=== PATIENT | female | born 1980 | race African-American/Black ===

== ENCOUNTER 2017-01-22 15:47 | Emergency (ER) | payer SELFPAY ==
[2017-01-22 16:02] VITALS: TEMP 98.1; BMI 45.1
--- NOTE | 2017-01-22 16:16 | PDOC ---
History of Present Illness <Deana Whiting - Last Filed: 01/22/17 20:05> - General History Source: Patient - History of Present Illness Initial Comments: 01/22/17 16:59 CC: Palpitations @ HD Patient is a 36 y.o. female with a PMH of ESRD (on HD), HTN and Schizophrenia who presents from HD for an isolated episode of palpitations. Patient states she was sitting during her HD session when she felt her heart beating very fast. Patient states the episode lasted approximately < 2-3 minutes. Patient denies any associated chest pain, vomiting, diaphoresis or shortness of breath. <CecilySravani - Last Filed: 01/22/17 20:25> - General Chief Complaint: Chest Pain Stated Complaint: CHEST PAIN Time Seen by Provider: 01/22/17 16:00 Past History <Deana Whiting - Last Filed: 01/22/17 20:05> - Past Medical History Diabetes: Yes HTN: Yes - Psycho/Social/Smoking Cessation Hx Anxiety: No Suicidal Ideation: No Smoking History: Never smoked Have you smoked in the past 12 months: No Information on smoking cessation initiated: No Hx Alcohol Use: No Drug/Substance Use Hx: No Substance Use Type: None <CecilySravani - Last Filed: 01/22/17 20:25> - Past Medical History Allergies/Adverse Reactions: Allergies Allergy/AdvReac Type Severity Reaction Status Date / Time No Known Allergies Allergy Verified 01/22/17 15:58 Home Medications: Ambulatory Orders Amlodipine Besylate [Norvasc -] 10 mg PO DAILY 01/22/17 Atenolol [Tenormin] 25 mg PO DAILY 01/22/17 Benztropine Mesylate [Cogentin -] 1 mg PO DAILY 01/22/17 Clozapine [Fazaclo] 300 mg PO DAILY 01/22/17 Docusate Sodium [Colace -] 100 mg PO BID 01/22/17 Famotidine [Pepcid -] 20 mg PO DAILY 01/22/17 Ferrous Sulfate [Feosol] 325 mg PO DAILY 01/22/17 Nifedipine ER [Procardia Xl -] 30 mg PO DAILY 01/22/17 Sennosides [Senna] 8.6 mg PO DAILY 01/22/17 Simvastatin [Zocor -] 20 mg PO HS 01/22/17 Solifenacin Succinate [Vesicare -] 5 mg PO DAILY 01/22/17 Review of Systems - Review of Systems Constitutional: No: Chills, Diaphoresis HEENTM: No: Blurred Vision, Throat Pain Respiratory: No: Cough, Orthopnea Cardiac (ROS): Yes: Palpitations. No: Chest Pain ABD/GI: No: Constipated, Diarrhea : No: Burning, Dysuria Neurological: No: Headache, Numbness Psychiatric: No: Anxiety, Depression All Other Systems: Reviewed and Negative <Sravani Tony - Last Filed: 01/22/17 20:25> *Physical Exam - Vital Signs Last Vital Signs Temp Pulse Resp BP Pulse Ox 98.1 F 823 H 18 106/56 98 01/22/17 15:58 01/22/17 19:29 01/22/17 19:29 01/22/17 19:29 01/22/17 19:29 <Deana Whiting - Last Filed: 01/22/17 20:05> - Vital Signs Last Vital Signs Temp Pulse Resp BP Pulse Ox 98.1 F 84 20 122/69 100 01/22/17 15:58 01/22/17 15:58 01/22/17 15:58 01/22/17 15:58 01/22/17 15:58 - Physical Exam General Appearance: Yes: Appropriately Dressed, Obese HEENT: positive: BOOM Neck: positive: Trachea midline, Supple Respiratory/Chest: positive: Lungs Clear, Normal Breath Sounds Cardiovascular: positive: Regular Rhythm, Regular Rate, S1, S2 Gastrointestinal/Abdominal: positive: Normal Bowel Sounds, Soft Extremity: positive: Normal Capillary Refill, Normal Inspection Neurologic: positive: Fully Oriented, Alert <Sravani Tony - Last Filed: 01/22/17 20:25> ED Treatment Course - LABORATORY CBC & Chemistry Diagram: 01/22/17 16:30 01/22/17 16:30 - ADDITIONAL ORDERS Additional order review: Laboratory Results 01/22/17 01/22/17 16:30 16:30 Sodium 133 L Potassium 4.8 Chloride 95 L Carbon Dioxide 25 Anion Gap 13 BUN 55 H Creatinine 11.8 H* Random Glucose 114 H Calcium 8.5 Creatine Kinase 510 H Creatine Kinase Index 0.1 CK-MB (CK-2) < 1.000 Troponin I 0.04 01/22/17 16:30 RBC 3.08 L MCV 86.9 MCHC 33.3 RDW 15.9 H MPV 8.5 <Deana Whiting - Last Filed: 01/22/17 20:05> - LABORATORY CBC & Chemistry Diagram: 01/22/17 16:30 01/22/17 16:30 - RADIOLOGY Radiology Studies Ordered: Category Date Time Status CHEST PA & LAT [RAD] Stat Radiology 01/22/17 16:12 Ordered <Sravani Tony - Last Filed: 01/22/17 20:25> Medical Decision Making - Medical Decision Making 01/22/17 17:01 Patient DDx includes r/o ACS vs. Psychiatric Induced Anxiety PLAN 1. EKG 2. CBC, BMP 3. Troponin x1 Spoke with [facility], received patient's med list, confirmed patient has no CHF, h/o AK. 01/22/17 18:44 Patient's BMP shows no hypokalemia (K+ 4.8), elevated Cr however patient did not finish dialysis today. CXR negative for effusions or pulmonary infiltrate. Spoke to Dr. Chavez, patient scheduled for dialysis at [facility] tomorrow @ 8:15. Patient discharged to [facility]. <Sravani Tony - Last Filed: 01/22/17 20:25> *DC/Admit/Observation/Transfer <Deana Whiting - Last Filed: 01/22/17 20:05> - Discharge Dispostion Admit: No <CecilySravani - Last Filed: 01/22/17 20:25> Diagnosis at time of Disposition: Heart palpitations - Discharge Dispostion Disposition: HOME Condition at time of disposition: Stable - Patient Instructions Printed Discharge Instructions: DI for Palpitations Additional Instructions: You were evaluated in the ED today for a short isolated episode of palpitations. Please return to the ED should you feel any chest pain, shortness of breath or confusion. As you did not complete your dialysis appointment today, a dialysis session has been scheduled for you at [facility], [address] [place] [address] tomorrow at 8:15 a.m.
--- NOTE | 2017-01-22 16:53 | PDOC ---
Attending Attestation - Resident Resident Name: Sravani Tony - ED Attending Attestation I have performed the following: I have examined & evaluated the patient, The case was reviewed & discussed with the resident, I agree w/resident's findings & plan, Exceptions are as noted - HPI HPI: 01/22/17 16:52 36 yo obese paresh ESRD ,schizophrenia had 5 minutes of palpitations during her dialysis and they didn't finish her treatment - Physicial Exam PE: 01/22/17 19:59 obese 36 yo female who currently has not palpitations or chest pain lungs cta b/l cvr [id number] abd protuberant,no rebound and no guarding Ext mild edema neuro alert,conversant,moving all extremities - Medical Decision Making 01/22/17 16:53 w/u ACS -ekg,cards,cbc,comp,inr,cxr 01/22/17 20:02 neg trop/pt had recent echo /discharge home,will follow up w her PCP
[2017-01-22 17:43] LABS: MCHC 33.3 g/dl (32.0-36.0); MEAN CELL VOLUME 86.9 fl (80-96); MEAN PLT VOLUME 8.5 fl (7.5-11.1); PLATELET COUNT 196 K/MM3 (134-434); RDW 15.9 % (11.6-15.6); WHITE BLOOD COUNT 9.5 K/mm3 (4.0-10.0)
[2017-01-22 18:28] LABS: CPK 510 IU/L (26-192)
[2017-01-22 18:29] LABS: ANION GAP 13 (8-16); CALCIUM 8.5 mg/dL (8.5-10.1); CO2 25 mmol/L (21-32); GLUCOSE,RANDOM 114 mg/dL (74-106)
[2017-01-22 18:33] LABS: TROPONIN I 0.04 ng/ml (0.00-0.05)
[2017-01-22 18:37] LABS: CREATININE 11.8 mg/dL (0.55-1.02)
[2017-01-22 19:30] VITALS: BP 106/56; PULSE 823
--- NOTE | 2017-01-24 12:22 | EKG ---
Test Reason : Blood Pressure : / mmHG Vent. Rate : 080 BPM Atrial Rate : 080 BPM P-R Int : 188 ms QRS Dur : 082 ms QT Int : 392 ms P-R-T Axes : 039 023 014 degrees QTc Int : 452 ms POOR DATA QUALITY, INTERPRETATION MAY BE ADVERSELY AFFECTED NORMAL SINUS RHYTHM NONSPECIFIC T WAVE ABNORMALITY ABNORMAL ECG NO PREVIOUS ECGS AVAILABLE Confirmed by SAMREEN THOMAS MD ([id number]) on 01/24/2017 12:22:52 PM Referred By: Confirmed By:SAMREEN THOMAS MD
== END 2017-01-22 22:10 | disposition home or self-care (01) ==
LOC: JER 15:47
DX: R00.2 Palpitations (principal); I12.0 Hypertensive chronic kidney disease with stage 5 chronic kidney disease or end stage renal disease; E11.22 Type 2 diabetes mellitus with diabetic chronic kidney disease; N18.6 End stage renal disease; N17.8 Other acute kidney failure; Z99.2 Dependence on renal dialysis
CPT/HCPCS: 36415; 71020-TC; 80048; 82553; 84484; 85027; 93005; 93010; 99284-25

== ENCOUNTER 2017-04-13 15:33 | Observation (INO) | payer OTHER ==
--- NOTE | 2017-04-13 15:45 | PDOC ---
History of Present Illness - History of Present Illness Initial Comments: 04/13/17 16:24 The patient is a 36 year old female with a significant PMH of end stage renal disease (on hemodialysis), hypertension, and schizophrenia who was sent to the emergency department because their was a blood clot during her hemodialysis session. The patient reports no other symptoms or complaints today. The patient denies chest pain, shortness of breath, headache and dizziness. Denies fever, chills, nausea, vomit, diarrhea and constipation. Denies dysuria, frequency, urgency and hematuria. Allergies: NKA Past surgical history: Dialysis shunt Social history: No reported drug, alcohol, or cigarette use. <Lexis Guzman - Last Filed: 04/13/17 19:26> <Abdifatah Luevano - Last Filed: 04/14/17 15:19> - General Chief Complaint: Dialysis Shunt Problem Stated Complaint: DIALYSIS PORT Time Seen by Provider: 04/13/17 15:45 Past History <Lexis Guzman - Last Filed: 04/13/17 19:26> - Past Medical History Diabetes: Yes HTN: Yes - Suicide/Smoking/Psychosocial Hx Smoking History: Never smoked Have you smoked in the past 12 months: No Hx Alcohol Use: No Drug/Substance Use Hx: No Substance Use Type: None <Abdifatah Luevano - Last Filed: 04/14/17 15:19> - Past Medical History Allergies/Adverse Reactions: Allergies Allergy/AdvReac Type Severity Reaction Status Date / Time No Known Allergies Allergy Verified 01/22/17 15:58 Home Medications: Ambulatory Orders Amlodipine Besylate [Norvasc -] 10 mg PO DAILY 01/22/17 Atenolol [Tenormin] 25 mg PO ASDIR 01/22/17 Benztropine Mesylate [Cogentin -] 1 mg PO DAILY 01/22/17 Clozapine [Fazaclo] 300 mg PO DAILY 01/22/17 Docusate Sodium [Colace -] 100 mg PO BID 01/22/17 Famotidine [Pepcid -] 20 mg PO DAILY 01/22/17 Ferrous Sulfate [Feosol] 325 mg PO DAILY 01/22/17 Nifedipine ER [Procardia Xl -] 30 mg PO DAILY 01/22/17 Sennosides [Senna] 8.6 mg PO DAILY 09/05/17 Simvastatin [Zocor -] 20 mg PO HS 01/22/17 Solifenacin Succinate [Vesicare -] 5 mg PO DAILY 01/22/17 Acetaminophen [Pain Relief] 650 mg PO QID PRN 04/13/17 Folic Acid 1 mg PO DAILY 04/13/17 Pravastatin Sodium 20 mg PO DAILY 04/13/17 Sevelamer HCl [Renagel] 800 mg PO TID 04/13/17 Review of Systems - Review of Systems Able to Perform ROS?: Yes Comments:: 04/13/17 16:25 A complete review of 10 out of 10 review of systems is taken and is negative apart from what is previously mentioned below and in the HPI. <Lexis Guzman - Last Filed: 04/13/17 19:26> *Physical Exam - Physical Exam Comments: 04/13/17 16:25 Vitals: Triage Vital signs reviewed General Appearance: no acute distress, well nourished well developed, Head: Atraumatic, normocephalic Eyes: Pupils equal reactive round, extraocular movement intact Neck: Supple;No Nuchal rigidity Chest Wall: Nontender Cardiac: Regular rate and rhythm, no murmurs, no rubs, no gallops, Lungs: Clear to auscultation bilateral, good air movement bilaterally, Abdomen: Soft, nondistended, normal bowel sounds, nontender to palpation Rectal: Exam deferred Extremities: Full range of motion to all extremities, no cyanosis, clubbing, or edema Skin: Warm and dry, no rashes or lesions, no petechiae Neuro: AOX3; Cranial Nerves 2-12 grossly intact. Psych: normal mood <Lexis Guzman - Last Filed: 04/13/17 19:26> Heart Score/ECG Review #1 04/13/17 19:26 EKG performed at [16:42] demonstrates rate of [80], rhythm of [normal], axis equal to [normal]. no T wave inversions, no ST elevations <Lexis Guzman - Last Filed: 04/13/17 19:26> ED Treatment Course - LABORATORY CBC & Chemistry Diagram: 04/13/17 17:00 04/13/17 17:00 <Lexis Guzman - Last Filed: 04/13/17 19:26> - LABORATORY CBC & Chemistry Diagram: 04/14/17 07:00 04/14/17 07:00 <Abdifatah Luevano - Last Filed: 04/14/17 15:19> Medical Decision Making - Medical Decision Making 04/13/17 20:49 Dialysis with clogged dialysis catheter Hemodynamically stable potassium 4.6 does not need emergent dialysis. Spoke with Dr. Boothe vascular surgery recommended patient be transferred to [facility] Patient not accepted for transfer by vascular team at [facility] We'll admit patient to medicine service here vascular consultation in a.m. patient does not need emergent dialysis medicine team to coordinate patient's next dialysis session. <Abdifatah Luevano - Last Filed: 04/14/17 15:19> *DC/Admit/Observation/Transfer - Attestations Scribe Attestion: 04/13/17 16:26 Documentation prepared by Leixs Guzman, acting as medical office clerk for Abdifatah Luevano MD. <Lexis Guzman - Last Filed: 04/13/17 19:26> - Discharge Dispostion Admit: No <Abdifatah Luevano - Last Filed: 04/14/17 15:19> Diagnosis at time of Disposition: Dialysis catheter clot or failure - Discharge Dispostion Disposition: TRANSFER ACUTE CARE/OTHER HOSP
[2017-04-13 16:50] VITALS: BMI 45.1
[2017-04-13 17:16] LABS: BASO % 1.1 % (0-2.0); EOS % 5.6 % (0-4.5); MCH 29.9 pg (25.7-33.7); MCHC 32.2 g/dl (32.0-36.0); MEAN PLT VOLUME 7.8 fl (7.5-11.1); NEUT % 63.9 % (42.8-82.8); PLATELET COUNT 218 K/MM3 (134-434); RDW 16.4 % (11.6-15.6); WHITE BLOOD COUNT 6.4 K/mm3 (4.0-10.0)
[2017-04-13 17:25] LABS: INR 1.01 (0.82-1.09); PROTHROMBIN TIME (PATIENT) 11.4 SEC (9.98-11.88)
[2017-04-13 17:27] LABS: ACTIVATED PTT 31.7 SECONDS (26.9-34.4)
[2017-04-13 17:42] LABS: ALBUMIN 3.6 g/dl (3.4-5.0); ANION GAP 11 (8-16); CALCIUM 8.2 mg/dL (8.5-10.1); CO2 24 mmol/L (21-32); GLUCOSE,RANDOM 100 mg/dL (74-106); SGOT/AST 15 U/L (15-37); SGPT/ALT 25 U/L (12-78)
[2017-04-13 17:48] LABS: ALK PHOS 105 U/L (45-117); BILIRUBIN,TOTAL 0.4 mg/dL (0.2-1.0); TOT PROT 8.1 g/dl (6.4-8.2)
[2017-04-13 17:49] LABS: CREATININE 8.6 mg/dL (0.55-1.02)
--- NOTE | 2017-04-14 00:39 | HP ---
CHIEF COMPLAINT: Non Functioning Permacath PCP: HISTORY OF PRESENT ILLNESS: This is a 36 y/o with a PMHx of: ESRD, HTN, Schizophrenia. Who presents to the ED from the Dialysis Center for a clogged Dialysis Catheter. Patient's last HD was 5 days ago. Patient denies fever, chills, cough, SOB, CP, AP, N/V/D, constipation. ER course was notable for: (1) BUN 47, Cr 8.6 (2) EKG- NSR (3) Chest Xray- no abnormal pathology Recent Travel: None PAST MEDICAL HISTORY: ESRD HTN Schizophrenia PAST SURGICAL HISTORY: Permacath Social History: Smoking: Never Alcohol: None Drugs: None Lives with family Family History: Mother: DVT Allergies No Known Allergies Allergy (Verified 01/22/17 15:58) HOME MEDICATIONS: Home Medications Medication Instructions Recorded Amlodipine Besylate [Norvasc -] 10 mg PO DAILY 01/22/17 Atenolol [Tenormin] 25 mg PO ASDIR 01/22/17 Benztropine Mesylate [Cogentin -] 1 mg PO DAILY 01/22/17 Clozapine [Fazaclo] 300 mg PO DAILY 01/22/17 Docusate Sodium [Colace -] 100 mg PO BID 01/22/17 Famotidine [Pepcid -] 20 mg PO DAILY 01/22/17 Ferrous Sulfate [Feosol] 325 mg PO DAILY 01/22/17 Nifedipine ER [Procardia Xl -] 30 mg PO DAILY 01/22/17 Sennosides [Senna] 8.6 mg PO DAILY 01/22/17 Simvastatin [Zocor -] 20 mg PO HS 01/22/17 Solifenacin Succinate [Vesicare -] 5 mg PO DAILY 01/22/17 Acetaminophen [Pain Relief] 650 mg PO QID PRN 04/13/17 Folic Acid 1 mg PO DAILY 04/13/17 Pravastatin Sodium 20 mg PO DAILY 04/13/17 Sevelamer HCl [Renagel] 800 mg PO TID 04/13/17 REVIEW OF SYSTEMS CONSTITUTIONAL: Absent: fever, chills, diaphoresis, generalized weakness, malaise, loss of appetite, weight change HEENT: Absent: rhinorrhea, nasal congestion, throat pain, throat swelling, difficulty swallowing, mouth swelling, ear pain, eye pain, visual changes CARDIOVASCULAR: Absent: chest pain, syncope, palpitations, irregular heart rate, lightheadedness , peripheral edema RESPIRATORY: Absent: cough, shortness of breath, dyspnea with exertion, orthopnea, wheezing, stridor, hemoptysis GASTROINTESTINAL: Absent: abdominal pain, abdominal distension, nausea, vomiting, diarrhea, constipation, melena, hematochezia GENITOURINARY: Absent: dysuria, frequency, urgency, hesitancy, hematuria, flank pain, genital pain MUSCULOSKELETAL: Absent: myalgia, arthralgia, joint swelling, back pain, neck pain SKIN: Absent: rash, itching, pallor HEMATOLOGIC/IMMUNOLOGIC: Absent: easy bleeding, easy bruising, lymphadenopathy, frequent infections ENDOCRINE: Absent: unexplained weight gain, unexplained weight loss, heat intolerance, cold intolerance NEUROLOGIC: Absent: headache, focal weakness or paresthesias, dizziness, unsteady gait, seizure, mental status changes, bladder or bowel incontinence PSYCHIATRIC: Absent: anxiety, depression, suicidal or homicidal ideation, hallucinations. PHYSICAL EXAMINATION Vital Signs - 24 hr 04/13/17 04/13/17 04/13/17 15:33 21:28 22:00 Temperature 98.8 F 98.4 F Pulse Rate 80 82 Pulse Rate [ 87 Apical] Respiratory 16 18 19 Rate Blood Pressure 126/94 125/66 Blood Pressure 127/70 [Right Arm] O2 Sat by Pulse 100 100 Oximetry (%) 04/13/17 23:00 Temperature 98.4 F Pulse Rate 75 Pulse Rate [ Apical] Respiratory 18 Rate Blood Pressure 125/60 Blood Pressure [Right Arm] O2 Sat by Pulse Oximetry (%) GENERAL: Obese, awake, alert, and oriented to baseline, in no acute distress. HEAD: Normal with no signs of trauma. EYES: Pupils equal, round and reactive to light, extraocular movements intact, sclera anicteric, conjunctiva clear. No lid lag. EARS, NOSE, THROAT: Ears normal, nares patent, oropharynx clear without exudates. Moist mucous membranes. NECK: Normal range of motion, supple without lymphadenopathy, JVD, or masses. LUNGS: Breath sounds equal, clear to auscultation bilaterally. No wheezes, and no crackles. No accessory muscle use. HEART: Regular rate and rhythm, normal S1 and S2 without murmur, rub or gallop. CHEST: Permacath to RCW ABDOMEN: Soft, nontender, not distended, normoactive bowel sounds, no guarding, no rebound, no masses. No hepatomegaly or splenomegaly. MUSCULOSKELETAL: Normal range of motion at all joints. No bony deformities or tenderness. No CVA tenderness. UPPER EXTREMITIES: 2+ pulses, warm, well-perfused. No cyanosis. No clubbing. No peripheral edema. LOWER EXTREMITIES: 2+ pulses, warm, well-perfused. No calf tenderness. No peripheral edema. NEUROLOGICAL: Cranial nerves II-XII intact. Normal speech. Gait not observed. PSYCHIATRIC: Cooperative. Good eye contact. Appropriate mood and affect. SKIN: Warm, dry, normal turgor, no rashes or lesions noted, normal capillary refill. Laboratory Results - last 24 hr 04/13/17 04/13/17 04/13/17 17:00 17:00 17:00 WBC RBC Hgb Hct MCV MCH MCHC RDW Plt Count MPV Neutrophils % Lymphocytes % Monocytes % Eosinophils % Basophils % PT with INR 11.40 INR 1.01 PTT (Actin FS) 31.7 Sodium 137 Potassium 4.5 Chloride 102 Carbon Dioxide 24 Anion Gap 11 BUN 47 H Creatinine 8.6 H* D Creat Clearance w eGFR 5.18 Random Glucose 100 Calcium 8.2 L Total Bilirubin 0.4 AST 15 ALT 25 Alkaline Phosphatase 105 Total Protein 8.1 Albumin 3.6 Blood Type O POSITIVE Antibody Screen Negative 04/13/17 17:00 WBC 6.4 D RBC 3.65 Hgb 10.9 D Hct 34.0 D MCV 93.0 MCH 29.9 MCHC 32.2 RDW 16.4 H Plt Count 218 MPV 7.8 Neutrophils % 63.9 Lymphocytes % 21.3 Monocytes % 8.1 Eosinophils % 5.6 H Basophils % 1.1 PT with INR INR PTT (Actin FS) Sodium Potassium Chloride Carbon Dioxide Anion Gap BUN Creatinine Creat Clearance w eGFR Random Glucose Calcium Total Bilirubin AST ALT Alkaline Phosphatase Total Protein Albumin Blood Type Antibody Screen ASSESSMENT/PLAN: This is a 36 y/o woman with a PMHx of ESRD (HD- ), HTN, Schizophrenia. Placed in Observation for Clogged Permacath for further evaluation of their emergent condition. Plan: FEN - Fluids Restriction 1L - Replete lytes prn - NPO DVT Prophylaxis - OOB - SCDs - Consider AC if LOS > 48 hrs Code Status: Full Code Dispo: Observation Problem List - Problem (1) Dialysis catheter clot or failure Assessment/Plan: -Likely secondary to clot - Appreciate Vascular Consult - Appreciate Nephrology Consult - Monitor vitals - Keep NPO Code(s): SUN0665 - (2) ESRD (end stage renal disease) Assessment/Plan: - HD (, , Sat) - Appreciate Nephrology Consult Code(s): N18.6 - END STAGE RENAL DISEASE (3) HTN (hypertension) Assessment/Plan: - Controlled - Monitor BP - Continue home med when verified with patient's pharmacy (Patient is a poor historian) Code(s): I10 - ESSENTIAL (PRIMARY) HYPERTENSION (4) Schizophrenia Assessment/Plan: - Will need to verify med with home pharmacy Code(s): F20.9 - SCHIZOPHRENIA, UNSPECIFIED (5) DVT prophylaxis Assessment/Plan: - OOB - SCDs - Consider AC if LOS > 48 hrs Code(s): ELF6237 - Visit type - Emergency Visit Emergency Visit: Yes ED Registration Date: 04/13/17 Care time: The patient presented to the Emergency Department on the above date and was hospitalized for further evaluation of their emergent condition. - New Patient This patient is new to me today: Yes Date on this admission: 04/13/17 - Critical Care Critical Care patient: No
[2017-04-14] MEDS ORDERED: FAMOTIDINE 20 MG/50 ML IVPB 20 MG/50 ML MG IVPB ONE (06:04)
[2017-04-14] MEDS ORDERED: DEXTROSE 5%-0.45% SALINE 1,000 ML IV SCH (06:15)
[2017-04-14 08:06] LABS: BASO % 1.1 % (0-2.0); EOS % 5.7 % (0-4.5); MCH 30.2 pg (25.7-33.7); MCHC 32.7 g/dl (32.0-36.0); MEAN CELL VOLUME 92.5 fl (80-96); MEAN PLT VOLUME 8.2 fl (7.5-11.1); NEUT % 61.7 % (42.8-82.8); PLATELET COUNT 205 K/MM3 (134-434); RDW 16.6 % (11.6-15.6); WHITE BLOOD COUNT 6.1 K/mm3 (4.0-10.0)
[2017-04-14 09:15] LABS: ANION GAP 12 (8-16); CALCIUM 7.9 mg/dL (8.5-10.1); CO2 20 mmol/L (21-32); GLUCOSE,RANDOM 107 mg/dL (74-106); MAGNESIUM 2.6 mg/dL (1.8-2.4); PHOSPHOROUS 5.4 mg/dL (2.5-4.9)
[2017-04-14 09:20] LABS: CREATININE 8.7 mg/dL (0.55-1.02)
--- NOTE | 2017-04-14 13:56 | CONSULT ---
Consult Consult Specialty:: Nephrology Reason for Consultation:: ESRD - History of Present Illness Chief Complaint: sent in for catheter malfunction History of Present Illness: Pt is a 36 year old female with pmhx of ESRD, HTN and schizophremia who was sent in from HD for catheter malfunction. Pt is a poor historian and does not know where she dialyzes or who her zigzag stitcher is. I called the [facility] [phone] and spoke to Angy which is her nurse for history. I also called the patients sister Lakshmi [phone] and discussed her care. Pt denies shortness of breath. She is ambulating without difficulty. She is asking for food as she is NPO. She denies lower ext edema. She has a left arm fistula however it is not functioning. She says she went to [facility] to get her catheter placed. Pt is a very poor historian and defaults most questions to the AL or her sister. - History Source History Provided By: Patient, Family Member, Caregiver - Past Medical History Cardio/Vascular: Yes: HTN, Hyperlipdemia Gastrointestinal: Yes: GERD Renal/: Yes: Renal Failure, Hemodialysis ...: No Psych: Yes: Schizophrenia - Past Surgical History Past Surgical History: Yes: AV Fistula/Graft - Alcohol/Substance Use Hx Alcohol Use: No - Smoking History Smoking history: Never smoked Have you smoked in the past 12 months: No Home Medications - Allergies Allergies/Adverse Reactions: Allergies Allergy/AdvReac Type Severity Reaction Status Date / Time No Known Allergies Allergy Verified 01/22/17 15:58 - Home Medications Home Medications: Ambulatory Orders Amlodipine Besylate [Norvasc -] 10 mg PO DAILY 01/22/17 Atenolol [Tenormin] 25 mg PO ASDIR 01/22/17 Benztropine Mesylate [Cogentin -] 1 mg PO DAILY 01/22/17 Clozapine [Fazaclo] 300 mg PO DAILY 01/22/17 Docusate Sodium [Colace -] 100 mg PO BID 01/22/17 Famotidine [Pepcid -] 20 mg PO DAILY 01/22/17 Ferrous Sulfate [Feosol] 325 mg PO DAILY 01/22/17 Nifedipine ER [Procardia Xl -] 30 mg PO DAILY 01/22/17 Sennosides [Senna] 8.6 mg PO DAILY 01/22/17 Simvastatin [Zocor -] 20 mg PO HS 01/22/17 Solifenacin Succinate [Vesicare -] 5 mg PO DAILY 01/22/17 Acetaminophen [Pain Relief] 650 mg PO QID PRN 04/13/17 Folic Acid 1 mg PO DAILY 04/13/17 Pravastatin Sodium 20 mg PO DAILY 04/13/17 Sevelamer HCl [Renagel] 800 mg PO TID 04/13/17 Family Disease History - Family Disease History Family History: Denies Review of Systems - Review of Systems Constitutional: reports: No Symptoms Eyes: reports: No Symptoms HENT: reports: No Symptoms Neck: reports: No Symptoms Cardiovascular: reports: No Symptoms Respiratory: reports: No Symptoms Gastrointestinal: reports: No Symptoms Genitourinary: reports: No Symptoms Musculoskeletal: reports: No Symptoms Integumentary: reports: No Symptoms Neurological: reports: No Symptoms Endocrine: reports: No Symptoms Hematology/Lymphatic: reports: No Symptoms Psychiatric: reports: No Symptoms Physical Exam Vital Signs: Vital Signs Temperature 98.7 F 04/14/17 06:00 Pulse Rate 74 04/14/17 10:00 Respiratory Rate 18 04/14/17 10:00 Blood Pressure 109/74 04/14/17 10:00 O2 Sat by Pulse Oximetry (%) 98 04/14/17 06:11 Constitutional: Yes: Calm Eyes: Yes: Conjunctiva Clear HENT: Yes: Atraumatic Neck: Yes: Supple Cardiovascular: Yes: S1, S2 Respiratory: Yes: Regular, CTA Bilaterally Gastrointestinal: Yes: Soft, Abdomen, Obese Renal/: Yes: WNL Musculoskeletal: Yes: WNL Extremities: Yes: Other (left arm fistula) Edema: No Neurological: Yes: Oriented Psychiatric: Yes: Oriented Labs: CBC, BMP 04/14/17 07:00 04/14/17 07:00 Laboratory Tests 04/13/17 04/13/17 04/13/17 17:00 17:00 17:00 WBC Hgb 10.9 D Plt Count PT with INR 11.40 INR 1.01 PTT (Actin FS) 31.7 Sodium 137 Potassium 4.5 Chloride 102 Carbon Dioxide 24 Anion Gap 11 BUN 47 H Creatinine 8.6 H* D Random Glucose 100 Calcium 8.2 L 04/14/17 04/14/17 07:00 07:00 WBC 6.1 Hgb 10.0 L Plt Count 205 PT with INR INR PTT (Actin FS) Sodium 137 Potassium 4.7 Chloride 105 Carbon Dioxide 20 L Anion Gap 12 BUN 52 H Creatinine 8.7 H* Random Glucose 107 H Calcium 7.9 L Imaging - Results Chest X-ray: Report Reviewed Problem List - Problems (1) Dialysis catheter clot or failure Code(s): FWD0976 - (2) ESRD (end stage renal disease) Code(s): N18.6 - END STAGE RENAL DISEASE (3) HTN (hypertension) Code(s): I10 - ESSENTIAL (PRIMARY) HYPERTENSION (4) Schizophrenia Code(s): F20.9 - SCHIZOPHRENIA, UNSPECIFIED Assessment/Plan Current Medications Generic Name Dose Route Start Last Admin Trade Name Freq PRN Reason Stop Dose Admin Dextrose/Sodium Chloride 1,000 mls @ 42 mls/hr 04/14/17 06:15 04/14/17 06:53 D5-1/2ns - IV 42 mls/hr ASDIR PRASANNA Administration Impression 1. HD catheter malfunction 2. ESRD 3. HTN 4. hyperlipidemia 5. GERD 6. schizophrenia 7. anemia Plan - stop fluids - start renal diet - called vascular surgery for permacath exchange tomorrow - resume NH meds - called pts NH at [place] [phone] - called pts sister Lakshmi at [phone] - called and discussed with medical team - everyone is aware of plan - will arrange for HD tomorrow after permacath - pt goes for HD at [facility] which is closed today - pts zigzag stitcher is at [facility] however family, pt and NH dont know the name - will follow Dr Pack
--- NOTE | 2017-04-14 14:33 | PN ---
Progress Note (short form) - Note Progress Note: Subjective: The patient was seen and examined at the bedside, she states she is comfortable. She denies any shortness of breath, chest pain, increased leg swelling For permacath replacement tomorrow the HD Current Medications Generic Name Dose Route Start Last Admin Trade Name Nico PRN Reason Stop Dose Admin Dextrose/Sodium Chloride 1,000 mls @ 42 mls/hr 04/14/17 06:15 04/14/17 06:53 D5-1/2ns - IV 42 mls/hr ASDIR PRASANNA Administration Objective: Vital Signs Period Temp Pulse Resp BP Sys/Vick Pulse Ox Last 24 Hr 98.4 F-98.9 F 74-88 16-22 109-130/60-94 98-100 Physical Exam: General: NAD, A&Ox3 Lungs: CTA bilaterally Heart: RRR, S1S2 Abd: Soft, non-tender, non-distended Ext: Left arm fistula. Warm, well-perfused. Trace b/l lower extremity edema Skin: L CW permacath, no surrounding erythema or tenderness CBCD WBC 6.1 K/mm3 (4.0-10.0) 04/14/17 07:00 RBC 3.31 M/mm3 (3.60-5.2) L 04/14/17 07:00 Hgb 10.0 GM/dL (10.7-15.3) L 04/14/17 07:00 Hct 30.6 % (32.4-45.2) L 04/14/17 07:00 MCV 92.5 fl (80-96) 04/14/17 07:00 MCHC 32.7 g/dl (32.0-36.0) 04/14/17 07:00 RDW 16.6 % (11.6-15.6) H 04/14/17 07:00 Plt Count 205 K/MM3 (134-434) 04/14/17 07:00 MPV 8.2 fl (7.5-11.1) 04/14/17 07:00 CMP Sodium 137 mmol/L (136-145) 04/14/17 07:00 Potassium 4.7 mmol/L (3.5-5.1) 04/14/17 07:00 Chloride 105 mmol/L (98-107) 04/14/17 07:00 Carbon Dioxide 20 mmol/L (21-32) L 04/14/17 07:00 Anion Gap 12 (8-16) 04/14/17 07:00 BUN 52 mg/dL (7-18) H 04/14/17 07:00 Creatinine 8.7 mg/dL (0.55-1.02) H* 04/14/17 07:00 Creat Clearance w eGFR 5.18 (>60) 04/13/17 17:00 Random Glucose 107 mg/dL (74-106) H 04/14/17 07:00 Calcium 7.9 mg/dL (8.5-10.1) L 04/14/17 07:00 Total Bilirubin 0.4 mg/dL (0.2-1.0) 04/13/17 17:00 AST 15 U/L (15-37) 04/13/17 17:00 ALT 25 U/L (12-78) 04/13/17 17:00 Alkaline Phosphatase 105 U/L (45-117) 04/13/17 17:00 Total Protein 8.1 g/dl (6.4-8.2) 04/13/17 17:00 Albumin 3.6 g/dl (3.4-5.0) 04/13/17 17:00 Assessment: This is a 36 year old female with PMHx of ESRD on HD (), Anemia, HTN, schizophrenia who presented to the ED with a clogged dialysis catheter. Plan: 1) Clogged dialysis catheter - For exchange tomorrow - Then HD after - D/c IV fluids - Continue Sevelamer - Appreciate nephrology consult 2) HTN - Home med list with [facility] and [facility]. Attempt to call custodial, left message for call back - Continue Procardia for now - Atenolol given on non-dialysis days, will hold tomorrow as the patient is getting HD 3) Anemia - Continue ferrous sulfate 4) Schizophrenia - Continue Cogentin - Continue Xlozapine 5) F/E/N: - Renal diet - Monitor electrolytes 6) Prophylaxis: - OOB ambulating - Heparin 5,000u sq tid 7) Dispo: - Requires continued observation CODE STATUS: FULL CODE Visit type - Emergency Visit Emergency Visit: Yes ED Registration Date: 04/13/17 Care time: The patient presented to the Emergency Department on the above date and was hospitalized for further evaluation of their emergent condition. - New Patient This patient is new to me today: No - Critical Care Critical Care patient: No
[2017-04-14] MEDS ORDERED: HEPARIN NA (PORCINE) 5,000 UNITS/ML 1ML VIAL SQ SCH (16:00)
[2017-04-14] MEDS: SEVELAMER CARBONATE 800 MG TAB (FP) PO SCH (17:15)
[2017-04-14] MEDS ORDERED: DOCUSATE SODIUM 100 MG CAPSULE (FP) PO SCH (22:00)
[2017-04-14] MEDS ORDERED: ATORVASTATIN CA 10 MG TABLET (FP) PO SCH (22:00)
[2017-04-14] MEDS: HEPARIN NA (PORCINE) 5,000 UNITS/ML 1ML VIAL SQ SCH (22:48)
[2017-04-15] MEDS: HEPARIN NA (PORCINE) 5,000 UNITS/ML 1ML VIAL SQ SCH (06:02)
[2017-04-15] MEDS ORDERED: oxyCODONE HCL 5 MG TABLET PO PRN ×2 (07:38→09:17)
[2017-04-15] MEDS ORDERED: ONDANSETRON 4 MG/2 ML VIAL IVPUSH PRN ×2 (07:38→09:17)
[2017-04-15] MEDS ORDERED: BUPIVACAINE HCL/PF 0.5% (5MG/ML) 10 ML VIAL ONE (07:43)
[2017-04-15] MEDS ORDERED: ceFAZolin SODIUM 1 GM VIAL ONE (07:44)
[2017-04-15] MEDS ORDERED: MIDAZOLAM HCL 2 MG/2 ML SINGLE DOSE VIAL ONE (07:45)
[2017-04-15] MEDS ORDERED: SODIUM CHLORIDE 1,000 ML IV SCH ×2 (07:45→09:17)
[2017-04-15] MEDS ORDERED: ceFAZolin SODIUM 1 GM VIAL IVPB ONE (07:48)
[2017-04-15] MEDS ORDERED: LIDOCAINE 1%/EPI 1:100000 (20 ML MULTI DOSE VIAL) ONE (07:55)
[2017-04-15] MEDS ORDERED: PROPOFOL 20 ML ONE (07:56)
[2017-04-15] MEDS ORDERED: LIDOCAINE HCL/PF 2% SDV 5ML VIAL ONE (07:56)
[2017-04-15] MEDS ORDERED: BUPIVACAINE HCL/PF 0.5% (5MG/ML) 10 ML VIAL IJ ONE (08:12)
[2017-04-15] MEDS ORDERED: LIDOCAINE 1%/EPI 1:100000 (20 ML MULTI DOSE VIAL) INF ONE (08:12)
[2017-04-15] MEDS: SEVELAMER CARBONATE 800 MG TAB (FP) PO SCH ×4 (08:18→17:24)
[2017-04-15 08:33] LABS: ALBUMIN 3.3 g/dl (3.4-5.0); ALK PHOS 91 U/L (45-117); ANION GAP 14 (8-16); BILIRUBIN,TOTAL 0.3 mg/dL (0.2-1.0); CALCIUM 8.9 mg/dL (8.5-10.1); CO2 21 mmol/L (21-32); GLUCOSE,RANDOM 83 mg/dL (74-106); SGOT/AST 13 U/L (15-37); SGPT/ALT 19 U/L (12-78)
[2017-04-15] MEDS ORDERED: HEPARIN NA (PORCINE) 5,000 UNITS/ML 1ML VIAL ONE (08:40)
[2017-04-15 08:48] LABS: CREATININE 9.1 mg/dL (0.55-1.02)
--- NOTE | 2017-04-15 09:04 | OP ---
Operative Note - Note: Operative Date: 04/15/17 Pre-Operative Diagnosis: ESRD. HD. Non-functioning permcath Operation: 1) SVC and right upper extremity venogram. 2) Angioplasty of SVC, right brachio-cephalic vein and right IJ. 3) Permacth placement Post-Operative Diagnosis: Other (and severe stenosis of SVC, brachio-cephalic and right IJ) Surgeon: Roverto Boothe Anesthesiologist/JUNIOR ACCOUNTING CLERK: Cee Knox Anesthesia: Local, MAC Specimens Removed: old catheter Operative Report Dictated: Yes
[2017-04-15] MEDS ORDERED: amLODIPine BESYLATE 10 MG TABLET (FP) PO SCH (10:00)
[2017-04-15] MEDS ORDERED: RANITIDINE HCL 150 MG TABLET (FP) PO SCH ×2 (10:00)
[2017-04-15] MEDS ORDERED: SENNOSIDES 8.6MG TABLET (FP) PO SCH ×2 (10:00)
[2017-04-15] MEDS ORDERED: FERROUS SO4 325 MG TABLET (FP) PO SCH ×2 (10:00)
[2017-04-15] MEDS ORDERED: FOLIC ACID 1 MG TABLET (FP) PO SCH ×2 (10:00)
[2017-04-15] MEDS ORDERED: NIFEdipine E.R. 30 MG TABLET (FP) PO SCH ×3 (10:00)
[2017-04-15] MEDS ORDERED: DOCUSATE SODIUM 100 MG CAPSULE (FP) PO SCH (10:00)
[2017-04-15] MEDS ORDERED: BENZTROPINE MESYLATE 1 MG TABLET (FP) PO SCH ×2 (10:00)
[2017-04-15] MEDS ORDERED: SOLIFENACIN SUCCINATE 5 MG TAB (FP) PO SCH ×2 (10:00)
[2017-04-15] MEDS ORDERED: PT OWN MED DRAWER 7, Y5N ONE (10:31)
--- NOTE | 2017-04-15 10:53 | OP ---
DATE OF OPERATION: 04/15/2017 PREOPERATIVE DIAGNOSIS: End-stage renal disease, nonfunctioning PermCath. 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 PROCEDURE: 1. Venogram of the superior vena cava, brachiocephalic vein, and internal jugular. 2. Angioplasty of the superior vena cava, brachiocephalic vein, and right internal jugular. 3. Placement of PermCath 90 cm through the previous site. ANESTHESIA: MAC. ESTIMATED BLOOD LOSS: Minimal. COMPLICATIONS: None. INDICATIONS: The patient is a 36-year-old female who is awake, alert, and understands what is going on; however, she has a history of schizophrenia, and her sister is her healthcare proxy. Therefore, consent was obtained from the sister, although I did have a full conversation with the patient. The patient was admitted through the emergency room and was sent by her dialysis unit because her right PermCath, which was placed a year ago, was not functioning. She also has a left AV access on the left arm, which is nonfunctioning. She does not recall how long it has been there. We did not place any of these catheters or grafts. I explained to the patient and sister that there is possibility that fibrin sheath or stenosis is present in the side and that is why the PermCath is not working since apparently it is being treated with some small amount of tPA in the dialysis unit multiple times. The risks of the procedure include bleeding, infection, need for more access or surgery. DESCRIPTION OF PROCEDURE: The patient was brought into the operating room and placed supine on the table. Venodyne boots were in place before sedation. Antibiotic prophylaxis was given as per the patient's dialysis dose. The chest and arm were prepped and draped in the standard surgical fashion. Time-out was confirmed. Sedation and 1% of lidocaine with epinephrine with were injected in the tunnel. After placing a 260 Glidewire Advantage into the IVC, and a 260 stiff angled Glidewire into the SVC, we removed the PermCath, which was sent to Pathology. There was no evidence of pus or any other source of infection. At this point, a 6-[place]izen [place] 45-cm sheath was placed into the SVC, brachiocephalic, and right IJ, and there was severe stenosis in the fibrin sheath, and we could not draw any blood. At this point, a venogram was obtained, which confirmed the stenosis or the fibrin sheath. For this reason, we dilated the tract with a 12-mm balloon without any hemodynamic instability. Now, the sheath flushes very well, and the venogram shows improvement of the lesions, although the right internal jugular is still severely stenotic. At this point, a 90-cm PermCath was placed in the standard fashion over the wires, sutured in place, and there was great flush. It was topped off with 2000 of heparin in one and 1900 heparin in the other port. A dry sterile dressing was applied. The patient tolerated the procedure well. The catheter was sutured in place with 3-0 nylon and 3-0 Vicryl. She was brought to the recovery room in stable condition. FIDEL MOTLEY M.D. [id number]
--- NOTE | 2017-04-15 12:50 | PN ---
Progress Note (short form) - Note Progress Note: Spoke to Dr Chavez, pt follows with him and he will see her today. Problem List - Problems (1) Dialysis catheter clot or failure Code(s): NCT5772 - (2) ESRD (end stage renal disease) Code(s): N18.6 - END STAGE RENAL DISEASE (3) HTN (hypertension) Code(s): I10 - ESSENTIAL (PRIMARY) HYPERTENSION (4) Schizophrenia Code(s): F20.9 - SCHIZOPHRENIA, UNSPECIFIED
[2017-04-15] MEDS ORDERED: HEPARIN NA (PORCINE) 5,000 UNITS/ML 1ML VIAL SQ SCH (14:00)
--- NOTE | 2017-04-15 14:39 | EKG ---
Test Reason : Blood Pressure : / mmHG Vent. Rate : 080 BPM Atrial Rate : 080 BPM P-R Int : 178 ms QRS Dur : 082 ms QT Int : 400 ms P-R-T Axes : 034 041 025 degrees QTc Int : 461 ms NORMAL SINUS RHYTHM NORMAL ECG WHEN COMPARED WITH ECG OF 22-JAN-2017 16:17, T WAVE VARIATION Confirmed by MAURICE MADDEN MD ([id number]) on 04/15/2017 2:38:47 PM Referred By: Confirmed By:MAURICE MADDEN MD
--- NOTE | 2017-04-15 15:04 | PN ---
Progress Note (short form) - Note Progress Note: Renal Follow up for ESRD on HD Pt seen and examined during dialysis. Pt without complaints s/p tunneled hd catheter placement today BP 98/60's Goal UF is 2L catheter with good flow Vital Signs Temperature 97.9 F 04/15/17 11:15 Pulse Rate 88 04/15/17 12:25 Respiratory Rate 18 04/15/17 12:25 Blood Pressure 127/73 04/15/17 12:25 O2 Sat by Pulse Oximetry (%) 100 04/15/17 09:40 Intake & Output 04/12/17 04/13/17 04/14/17 04/15/17 23:59 23:59 23:59 23:59 Intake Total 500 685 150 Output Total 5 Balance 500 685 145 Weight 132.585 kg NAD awake and alert RRR CTA obese, NT/ND No LE tre right IJ tunneled catheter CBC, BMP 04/14/17 07:00 04/15/17 06:20 Current Medications Atorvastatin Calcium (Lipitor -) 10 mg PO HS [facility] Benztropine Mesylate (Cogentin -) 1 mg PO DAILY [facility] Last Admin: 04/15/17 10:37 Dose: 1 mg Clozapine (Clozaril -) 300 mg PO HS [facility] Docusate Sodium (Colace -) 100 mg PO BID [facility] Last Admin: 04/15/17 10:37 Dose: 100 mg Ferrous Sulfate (Feosol -) 325 mg PO DAILY [facility] Last Admin: 04/15/17 10:37 Dose: 325 mg Folic Acid (Folic Acid -) 1 mg PO DAILY [facility] Last Admin: 04/15/17 10:38 Dose: 1 mg Heparin Sodium (Porcine) (Heparin -) 5,000 unit SQ TID [facility] Last Admin: 04/15/17 14:57 Dose: Not Given Nifedipine (Procardia Xl -) 30 mg PO DAILY [facility] Last Admin: 04/15/17 10:38 Dose: Not Given Ondansetron HCl (Zofran Injection) 4 mg IVPUSH Q6H PRN PRN Reason: NAUSEA AND/OR VOMITING Oxycodone HCl (Roxicodone -) 5 mg PO Q4H PRN PRN Reason: MILD PAIN Stop: 04/16/17 07:37 Ranitidine HCl (Zantac -) 150 mg PO DAILY [facility] Last Admin: 04/15/17 10:39 Dose: 150 mg Senna (Senna -) 1 tab PO DAILY [facility] Last Admin: 04/15/17 10:38 Dose: 1 tab Sevelamer Carbonate (Renvela -) 800 mg PO TIDCM [facility] Last Admin: 04/15/17 11:44 Dose: Not Given Solifenacin (Vesicare -) 5 mg PO DAILY [facility] Last Admin: 04/15/17 10:38 Dose: 5 mg This is a 36 year old woman with PMhx of ESRD on HD (TTS at [facility]), Hypertension, Schizophrenia who presented with cather malfunction. #ESRD on Hd with catheter dysfunction s/p catheter exchange and venogram by vascular Sx this am pt is tolertating dialysis well today Goal UF is 2L but may be limited by BP pt can be discharged today to follow up at outpatient dialysis center tomorrow Thank you Yared Chavez DO
[2017-04-15 15:44] VITALS: BP 109/55; PULSE 76; TEMP 97.7
[2017-04-15] MEDS ORDERED: cloZAPine 100 MG TABLET PO SCH ×2 (22:00)
[2017-04-15] MEDS ORDERED: ATORVASTATIN CA 10 MG TABLET (FP) PO SCH (22:00)
--- NOTE | 2017-04-16 09:31 | PATH ---
Surgical Pathology Report Patient Name: JACKELYN PRYOR Med. Rec. #: [id number] /Age/Gender: 1980 (Age: 36) / F Account: [id number] Location: [address] [place] [address]/[facility] Taken: 04/15/2017 Received: 04/15/2017 Reported: 04/16/2017 Physicians: NORMAN Worthington Specimen(s) Received OLD PERMA CATHETER Clinical History Preoperative diagnosis: End stage renal disease Postoperative diagnosis: Same Final Diagnosis PERMACATH, OLD, REMOVAL: CATHETER (PERMACATH). MACROSCOPIC DIAGNOSIS. Electronically Signed Renee Saez M.D. Gross Description Received fresh labeled "old permacath," is a 38 cm in length double lumen catheter. No soft tissue is present. No sections are submitted, gross only. 04/15/201704/15/2017
== END 2017-04-15 18:06 ==
LOC: JER 15:33 → JERBED 18:50 → J5S 21:48
PROVIDERS: ADMIT Internal Medicine; ATTEND Nurse Practitioner Acute Care
PROC: 027V3DZ Dilation of Superior Vena Cava with Intraluminal Device, Percutaneous Approach (ICD-10-PCS; principal; 2017-04-13)
PROC: 0J2TXYZ Change Other Device in Trunk Subcutaneous Tissue and Fascia, External Approach (ICD-10-PCS; 2017-04-13)
PROC: 3E033GC Introduction of Other Therapeutic Substance into Peripheral Vein, Percutaneous Approach (ICD-10-PCS; 2017-04-15)
DX: T82.858A Stenosis of other vascular prosthetic devices, implants and grafts, initial encounter (principal); T82.868A Thrombosis due to vascular prosthetic devices, implants and grafts, initial encounter; I12.0 Hypertensive chronic kidney disease with stage 5 chronic kidney disease or end stage renal disease; N18.6 End stage renal disease; Z99.2 Dependence on renal dialysis; F20.9 Schizophrenia, unspecified; E78.5 Hyperlipidemia, unspecified; K21.9 Gastro-esophageal reflux disease without esophagitis; D64.9 Anemia, unspecified
CPT/HCPCS: 36415; 71010-TC; 76000-TC; 80048; 80053; 83735; 84100; 85025; 85610; 85730; 86704; 86706; 86708; 86803; 86850; 86900; 86901; 87340; 88300-TC; 93005; 93010; 94760; 99282-25; G0378; J1644

== ENCOUNTER 2017-09-16 09:56 | Day surgery (SDC) | payer OTHER ==
[2017-09-12 14:26] VITALS: BMI 47.9
[2017-09-16] MEDS ORDERED: LIDOCAINE HCL 1%, 10 MG/ML (20ML VIAL) ONE (12:21)
[2017-09-16] MEDS ORDERED: HEPARIN NA (PORCINE) 5,000 UNITS/ML 1ML VIAL ONE (12:21)
[2017-09-16] MEDS ORDERED: PROPOFOL 20 ML ONE (12:53)
[2017-09-16] MEDS ORDERED: MIDAZOLAM HCL 2 MG/2 ML SINGLE DOSE VIAL ONE (12:53)
[2017-09-16] MEDS ORDERED: ceFAZolin SODIUM 1 GM VIAL ONE (13:35)
[2017-09-16] MEDS ORDERED: ceFAZolin SODIUM 1 GM VIAL IVPB ONE (13:36)
[2017-09-16] MEDS ORDERED: SODIUM CHLORIDE 0.9% P/F 10 ML VIAL IJ ONE (13:36)
[2017-09-16] MEDS ORDERED: LIDOCAINE HCL 1%, 10 MG/ML (50 mL VIAL) IJ ONE ×2 (13:44)
[2017-09-16] MEDS ORDERED: oxyCODONE HCL 5 MG TABLET PO PRN (14:53)
[2017-09-16] MEDS ORDERED: ONDANSETRON 4 MG/2 ML VIAL IVPUSH PRN (14:53)
[2017-09-16] MEDS ORDERED: SODIUM CHLORIDE 1,000 ML IV SCH (15:00)
--- NOTE | 2017-09-16 15:10 | OP ---
Operative Note - Note: Operative Date: 09/16/17 Pre-Operative Diagnosis: ESRD Operation: Right brachio-cephalic AV fistula Findings: SMall artery, became smaller with manipulation, adequate sized vein Implants: none Surgeon: Giovanni Reyes Anesthesia: MAC Drains & Tubes with Location: none Operative Report Dictated: Yes
[2017-09-16 16:01] VITALS: TEMP 97.8
[2017-09-16] MEDS ORDERED: ACETAMINOPHEN 325 MG TABLET (FP) PO ONE (16:18)
[2017-09-16] MEDS ORDERED: ACETAMINOPHEN 325 MG TABLET (FP) ONE (16:19)
[2017-09-16 17:31] VITALS: BP 110/78
[2017-09-16 17:41] VITALS: PULSE 80
--- NOTE | 2017-09-16 20:32 | OP ---
DATE OF OPERATION: DATE OF DICTATION: 09/16/2017 PREOPERATIVE DIAGNOSIS: End-stage renal disease. POSTOPERATIVE DIAGNOSIS: End-stage renal disease. SURGERY PERFORMED: Right brachiocephalic arteriovenous fistula. SURGEON: Ruth Reyes M.D. ANESTHESIA: MAC. DESCRIPTION OF PROCEDURE: This patient is an unfortunate 37-year-old female with multiple medical problems. The patient has had previous access attempts in the left arm which failed, and the decision was made to try a right brachiocephalic AV fistula after obtaining preoperative vein and artery evaluation by ultrasound. The patient was taken to the OR, given intravenous sedation and 3 g of Ancef due to her size. The right arm was prepped and draped in usual sterile manner, and using 1% plain lidocaine, a small incision was made in the antecubital fossa in a transverse fashion. Through this incision the median antecubital vein was identified and divided with clips through a branch point. The 8 [place] feeding tube passed up this vein and heparinized saline was instilled. Through the same incision, the brachial artery was identified. The bifurcation into the radial artery and ulnar arteries were also identified. Prior to manipulating the artery, they were small in size, the brachial artery was approximately 3 mm in diameter, the ulnar artery 1 mm in diameter, and the radial artery 2 mm in diameter. After manipulation, they became even smaller than this. They were each controlled with vessel loops. The artery was carefully controlled with the vessel loops and opened over the yee of the bifurcation with the 11 blade and Mcmillan scissors. The 5 [place] feeding tube did go easily up each of the 3 vessels, and heparinized saline was instilled. The 8 [place] feeding tube was passed up the brachial artery, and it was heparinized with heparinized saline as well. The spatulated end of the vein was then anastomosed in an end-to-side fashion to the artery with 6-0 Prolene suture. Once completed, the controls were released. There was a faint but palpable thrill in the fistula. When all bleeding was controlled, the wound was irrigated with saline solution and closed with 3-0 Vicryl running suture to the deeper layer, 4-0 Biosyn for the skin, Dermabond adhesive was applied as a dressing. Estimated blood loss was 10 mL, no transfusions were given. Patient was taken to the recovery room in stable condition. RUTH REYES M.D. [id number]
== END 2017-09-16 17:15 ==
LOC: JASU-SURG 09:56
PROVIDERS: ATTEND Surgery Vascular Surgery
PROC: 03170ZD Bypass Right Brachial Artery to Upper Arm Vein, Open Approach (ICD-10-PCS; principal; 2017-09-16 13:00)
DX: I12.0 Hypertensive chronic kidney disease with stage 5 chronic kidney disease or end stage renal disease (principal); N18.6 End stage renal disease; Z99.2 Dependence on renal dialysis
CPT/HCPCS: 36415; 84132; 84703; 94760; J1644